=== PATIENT | male | born 1965 | race Caucasian/White ===

== ENCOUNTER 2016-10-23 20:26 | Emergency (ER) | payer SELFPAY ==
--- NOTE | 2016-10-23 21:48 | EDM.PDOC ---
ED HPI GENERAL MEDICAL PROBLEM - General Chief Complaint: General Stated Complaint: PT HAS FISH HOOK IN LT THUMB Time Seen by Provider: 10/23/16 21:46 Source of Information: Reports: Patient History Limitations: Reports: No Limitations - History of Present Illness INITIAL COMMENTS - FREE TEXT/NARRATIVE: HISTORY AND PHYSICAL: []51-year-old male presenting with a fishhook injury to left thumb History of Present Illness: [] Right arrival fishhook was removed A piece of the trouble hook was missing He says a nurse came by and tried to retrieve it out of his thumb but was unable to Review of Systems: As per history of present illness and below otherwise all systems reviewed and negative. Past medical history: As per history of present illness and as reviewed below otherwise noncontributory. Surgical history: As per history of present illness and as reviewed below otherwise noncontributory. Social history: No reported history of drug or alcohol abuse. Family history: As per history of present illness and as reviewed below otherwise noncontributory. Physical exam: Alert and oriented male answering questions appropriately skin is warm and dry HEENT: Atraumatic, normocehpalic, pupils reactive, negative for conjunctival pallor or scleral icterus, mucous membranes moist, throat clear, neck supple, nontender, trachea midline. Lungs: Clear to auscultation, breath sounds equal bilaterally, chest non tender. Heart: S1S2, regular, negative for clicks, rubs, or JVD. Extremities: Small puncture area noted to the pad of his left hand just below his thumb, negative for cords or calf pain. Neurovascular unremarkable. Neuro: Awake, alert, oriented. Cranial nerves II through XII unremarkable. Cerebellum unremarkable. Motor and sensory unremarkable throughout. Exam nonfocal. Diagnostics: [X-ray left hand for foreign body] Therapeutics: [] Impression: [Foreign body to left hand] Plan: []Referred to Dr. Ramirez for injury Definitive disposition and diagnosis as appropriate pending reevaluation and review of above. Onset: Today, Sudden Duration: Hour(s):, Resolved Prior to Arrival Location: Reports: Upper Extremity, Left left thumb Pain Score (Numeric/FACES): 1 - Related Data Allergies Allergy/AdvReac Type Severity Reaction Status Date / Time No Known Allergies Allergy Verified 07/14/13 10:32 Home Meds: Home Meds Blood Pressure Medication 10/23/16 [History] ED ROS GENERAL - Review of Systems Review Of Systems: ROS reveals no pertinent complaints other than HPI. ED EXAM, GENERAL - Physical Exam Exam: See Below (see dictation) Course - Vital Signs Last Recorded V/S: Last Vital Signs Temp 36.7 C 10/23/16 21:46 Pulse 92 10/23/16 21:46 Resp 18 10/23/16 21:46 BP 193/113 H 10/23/16 21:46 Pulse Ox 97 10/23/16 21:46 - Orders/Labs/Meds Orders: Active Orders 24 hr Category Date Time Status Fingers Thumb Lt FA [CR] Stat Exams 10/23/16 21:45 Taken Departure - Departure Time of Disposition: 22:10 Disposition: Home, Self-Care 01 Condition: Good Clinical Impression: Foreign body of left hand Qualifiers: Encounter type: initial encounter Qualified Code(s): S60.552A - Superficial foreign body of left hand, initial encounter - Discharge Information Referrals: PCP,None [Primary Care Provider] - Amanda Ramirez MD [Physician] - Forms: ED Department Discharge Additional Instructions: The following information is given to patients seen in the emergency department who are being discharged to home. This information is to outline your options for follow-up care. We provide all patients seen in our emergency department with a follow-up referral. The need for follow-up, as well as the timing and circumstances, are variable depending upon the specifics of your emergency department visit. If you don't have a primary care physician on staff, we will provide you with a referral. We always advise you to contact your personal physician following an emergency department visit to inform them of the circumstance of the visit and for follow-up with them and/or the need for any referrals to a consulting specialist. The emergency department will also refer you to a specialist when appropriate. This referral assures that you have the opportunity for followup care with a specialist. All of these measure are taken in an effort to provide you with optimal care, which includes your followup. Under all circumstances we always encourage you to contact your private physician who remains a resource for coordinating your care. When calling for followup care, please make the office aware that this follow-up is from your recent emergency room visit. If for any reason you are refused follow-up, please contact the [facility] emergency department at and asked to speak to the emergency department charge nurse. X-rays do show a foreign body to your left hand Referrals been made to Dr. Ramirez plastic surgeon for further treatment Clinical will call you for the appointment [facility] - Plastic Surgery Professional Building [address] [place] [address], [address] [place] [address] - My Orders Last 24 Hours: My Active Orders 10/23/16 21:45 Fingers Thumb Lt FA [CR] Stat - Assessment/Plan Last 24 Hours: My Active Orders 10/23/16 21:45 Fingers Thumb Lt FA [CR] Stat
[2016-10-23] MEDS ORDERED: Bacitracin Oint 1 GM U/D Packet TOP ONE (22:16)
[2016-10-24 04:49] VITALS: BP 162/81
--- NOTE | 2016-10-24 11:00 | CR ---
EXAM DATE: 10/23/16 PATIENT'S AGE: 51 Patient: BRANDEN MORALES Facility: [place], [place] Site . Site : [id number] Study: XRay Extremity Left [id number] thumb-10/23/2016 10:05:53 PM Ordering Physician: Doctor Desai Final Report: Indication: Caught thumb on patient Technique: Three views left thumb Comparison: None Findings/impression: : There is a 1 centimeter slightly curvilinear metallic foreign body consistent with a fractured fishhook adjacent to the mid left 1st metacarpal. Osseous structures are intact. Dictated by Rachael Hernandez MD @ Oct 23 2016 10:27PM ----- ADDENDUM ----- Addendum: Note that the indication should read as follows: "Caught thumb on fish hook". Dictated by Rachael Hernandez MD @ Oct 23 2016 11:29PM (Electronic Signature) Report Signed by Proxy. OLY
== END 2016-10-23 22:38 | disposition home or self-care (01) ==
LOC: MW.ED 20:26
DX: S60.352A Superficial foreign body of left thumb, initial encounter (principal); W45.8XXA Other foreign body or object entering through skin, initial encounter
CPT/HCPCS: 73140-26-FA; 73140-FA; 99282; 99283

== ENCOUNTER 2023-11-25 22:31 | Emergency (ER) | payer BC ==
[2023-11-25] MEDS: Lidocaine 1% 5 ML VIAL INJECT ONE (23:06)
[2023-11-25] MEDS: Bacitracin Oint 1 GM U/D Packet TOP ONE (23:48)
[2023-11-25 23:58] VITALS: BP 201/111; PULSE 84
== END 2023-11-25 23:58 | disposition home or self-care (01) ==
LOC: MW.ED 22:31
DX: S61.216A Laceration without foreign body of right little finger without damage to nail, initial encounter (principal); I10 Essential (primary) hypertension; W26.8XXA Contact with other sharp object(s), not elsewhere classified, initial encounter
CPT/HCPCS: 12001; 99282; 99283; J3490

== ENCOUNTER 2024-06-03 09:26 | Emergency (ER) | payer BC ==
[2024-06-03] MEDS ORDERED: Sodium Chloride 0.9% 2.5 ML Syringe FLUSH PRN (10:36)
[2024-06-03] MEDS ORDERED: Sodium Chloride 0.9% 20 ML SDV IV PRN (10:36)
[2024-06-03] MEDS ORDERED: Sodium Chloride 0.9% 10 ML Syringe FLUSH PRN (10:36)
[2024-06-03] MEDS ORDERED: Losartan 50 MG Tab PO ONE (11:00)
[2024-06-03] MEDS: Losartan 50 MG Tab PO ONE (11:00)
[2024-06-03] MEDS: Hydrochlorothiazide 25 MG Tab PO ONE (11:00)
[2024-06-03 11:01] LABS: BASOPHILS ABSOLUTE AUTO 0.06 K/uL (0.00-0.20); BASOPHILS PERCENT AUTO 0.7 % (0.0-1.0); EOSINOPHILS PERCENT AUTO 1.2 % (0.0-6.0); HEMATOCRIT 45.4 % (42.0-52.0); HEMOGLOBIN 15.8 g/dL (14.0-18.0); IMMATURE GRAN ABSOLUTE AUTO 0.04 K/uL (0.00-0.05); IMMATURE GRAN PERCENT AUTO 0.5 % (0.0-0.4); LYMPHOCYTES ABSOLUTE AUTO 1.75 K/uL (1.00-4.80); MEAN CORPUSCULAR HEMOGLOBIN 30.4 pg (28.0-32.0); MEAN CORPUSCULAR HGB CONC 34.8 g/dL (32.0-36.0); MEAN CORPUSCULAR VOLUME 87.3 fL (83.0-99.0); MEAN PLATELET VOLUME 11.2 fL (9.4-12.4); MONOCYTES ABSOLUTE AUTO 0.64 K/uL (0.00-0.80); MONOCYTES PERCENT AUTO 7.7 % (0.0-8.0); NEUTROPHILS ABSOLUTE AUTO 5.75 K/uL (1.80-7.70); NEUTROPHILS PERCENT AUTO 68.9 % (41.0-71.0); PLATELET COUNT,PLT 218 K/uL (150-400); WHITE BLOOD CELL COUNT,WBC 8.34 K/uL (3.9-11.3)
[2024-06-03] MEDS: Aspirin 81 MG Tab.Chew PO ONE (11:12)
[2024-06-03 11:38] LABS: A/G RATIO 1.1 (0.9-1.6); ALBUMIN 3.8 g/dL (3.4-5.0); BILIRUBIN TOTAL 0.9 mg/dL (0.2-1.0); CALCIUM 9.2 mg/dL (8.5-10.1); CARBON DIOXIDE,CO2 28.9 mmol/L (21.0-32.0); CREATININE 1.3 mg/dL (0.8-1.3); EST CRCL DRUG DOSING (CG) 64.73 mL/min; POTASSIUM,K 4.5 mmol/L (3.5-5.1); PROTEIN TOTAL,TP 7.2 g/dL (6.4-8.2); TSH ULTRASENSITIVE 0.92 uIU/mL (0.36-3.74)
[2024-06-03 12:02] LABS: APPEARANCE,URINE CLEAR; BILIRUBIN,URINE NEGATIVE (NEGATIVE); COLOR,URINE YELLOW; GLUCOSE,URINE NEGATIVE (NEGATIVE); KETONES,URINE NEGATIVE (NEGATIVE); LEUKOCYTE ESTERASE,URINE NEGATIVE (NEGATIVE); NITRITE,URINE NEGATIVE (NEGATIVE); OCCULT BLOOD,URINE NEGATIVE (NEGATIVE); PH,URINE 5.5 (5.0-8.0); PROTEIN,URINE NEGATIVE (NEGATIVE); UROBILINOGEN,URINE 0.2 EU/dL (<2.0)
[2024-06-03] MEDS: Nitroglycerin/D5W 25 MG/250 ML BOTTLE IV SCH (12:02)
[2024-06-03 13:18] VITALS: BP 164/100; PULSE 65
[2024-06-03] MEDS: Heparin Sodium/0.45% NaCl 25,000 UNITS/250 ML BAG IV SCH (14:18)
[2024-06-03] MEDS: Heparin Sodium 5,000 Units/ML Vial IVPUSH ONE (14:18)
[2024-06-04] MEDS ORDERED: Hydrochlorothiazide/Losartan 12.5-50 mg Tab PO ONE (10:42)
== END 2024-06-03 14:35 ==
LOC: MW.ED 09:26
DX: I21.4 Non-ST elevation (NSTEMI) myocardial infarction (principal); I10 Essential (primary) hypertension
CPT/HCPCS: 36415; 71046; 80053; 81003; 83735; 83880; 84443; 84484; 85025; 85730; 93005; 96365; 96366; 96368; 99285; A9270; J1644; J2305